=== PATIENT | female | born 1980 | race Two or more races ===

== ENCOUNTER 2019-11-01 09:10 | Outpatient (CLI) | payer OTHER | END 2019-11-01 11:06 | disposition home or self-care (01) | LOC: NST 09:10 | DX: Z34.83 Encounter for supervision of other normal pregnancy, third trimester (principal) ==

== ENCOUNTER 2019-11-08 08:17 | Outpatient (CLI) | payer OTHER | END 2019-11-08 08:36 | disposition home or self-care (01) | LOC: NST 08:17 → ER 08:17 → NST 08:36 | DX: Z34.83 Encounter for supervision of other normal pregnancy, third trimester (principal) ==

== ENCOUNTER 2019-11-22 09:12 | Outpatient (CLI) | payer OTHER | END 2019-11-22 10:00 | disposition home or self-care (01) | LOC: NST 09:12 | DX: Z34.83 Encounter for supervision of other normal pregnancy, third trimester (principal) ==

== ENCOUNTER 2019-12-06 12:30 | Inpatient (IN) | payer OTHER ==
[~2019-12-06] VITALS: Ht 149.9 cm; Wt 78.9 kg
[2019-12-13] MEDS ORDERED: PRENATAL TABLE1 EAC1 PO (09:50)
[2019-12-13] MEDS ORDERED: B-12500 MCG PO (09:50)
== END 2019-12-16 12:36 | disposition home or self-care (01) | DRG 788 ==
LOC: LDR 12-13 09:15 → OB/GYN 12-13 09:15 → O/R 12-13 14:59 → OB/GYN 12-13 16:27
PROVIDERS: ADMIT Obstetrics & Gynecology
PROC: 4A1HXFZ Monitoring of Products of Conception, Cardiac Rhythm, External Approach (ICD-10-PCS; 2019-12-13)
PROC: 4A033R1 Measurement of Arterial Saturation, Peripheral, Percutaneous Approach (ICD-10-PCS; 2019-12-13)
PROC: 10D00Z1 Extraction of Products of Conception, Low, Open Approach (ICD-10-PCS; principal; 2019-12-13 13:00)
DX: O65.5 Obstructed labor due to abnormality of maternal pelvic organs (principal); O34.13 Maternal care for benign tumor of corpus uteri, third trimester; O76 Abnormality in fetal heart rate and rhythm complicating labor and delivery; Z3A.37 37 weeks gestation of pregnancy; Z37.0 Single live birth

== ENCOUNTER 2019-12-13 08:23 | Outpatient (CLI) | payer OTHER ==
[2019-12-13] MEDS ORDERED: B-12500 MCG PO (09:50)
[2019-12-13] MEDS ORDERED: PRENATAL TABLE1 EAC1 PO (09:50)
== END 2019-12-13 09:34 | disposition still patient (30) ==
LOC: NST 08:23
DX: Z34.83 Encounter for supervision of other normal pregnancy, third trimester (principal)